=== PATIENT | male | born 1980 | race Caucasian/White ===

== ENCOUNTER 2020-01-24 13:43 | Emergency (ER) | payer BC ==
[2020-01-24] MEDS ORDERED: DIAZEPAM 5 MG TABLET ONE (15:00)
[2020-01-24] MEDS ORDERED: KETOROLAC 30 MG/ML INJ ONE (15:00)
[2020-01-24] MEDS ORDERED: dexAMETHasone 10 MG/ML VIAL ONE (15:00)
[2020-01-24] MEDS ORDERED: NA CHLORIDE 0.9% 1,000 ML ONE (15:00)
[2020-01-24 15:08] LABS: Absolute Lymphocytes (CBC) 2.4 K/uL (0.7-4.9); Basophils % 0.5 % (0-1.3); Hematocrit 48.2 % (39.6-49.0); MPV 8.3 fL (7.6-11.3); RBC Red Blood Cell Count 5.27 M/uL (4.33-5.43)
[2020-01-24 15:19] LABS: Urine Blood NEGATIVE (NEG); Urine Glucose NEGATIVE (NEG); Urine Protein NEGATIVE (NEG); Urine Specific Gravity 1.025 (1.005-1.030); Urine pH 7.5 (5.0-7.0)
[2020-01-24 15:25] LABS: Albumin 4.1 g/dL (3.4-5.0); Bilirubin Total 0.3 mg/dL (0.2-1.0); Potassium 3.9 mmol/L (3.5-5.1); Protein, Total 7.4 g/dL (6.4-8.2)
--- NOTE | 2020-01-24 15:50 | RAD REPORT ---
EXAM DESCRIPTION: CTSpine Lumbar Wo Con01/24/2020 3:31 pm CLINICAL HISTORY: Right leg radiculopathy COMPARISON: None TECHNIQUE: Computed axial tomography lumbar spine was obtained with coronal and sagittal reconstruct ion. All CT scans are performed using dose optimization technique as appropriate and may include automated exposure control or mA/KV adjustment according to patient size. FINDINGS: No fracture is seen. No dislocation is noted. A moderate right posterolateral disc herniation L5-S1 displaces the right S1 nerve root posteriorly IMPRESSION: Negative for a lumbar fracture. Moderate right posterolateral disc herniation L5-S1
--- NOTE | 2020-01-24 15:57 | ER ---
Nurse's Notes [facility] Name: Marycarmen Bob Age: 39 yrs Sex: Male : 1980 Arrival Date: 01/24/2020 Time: 13:48 Bed 15 Private MD: Diagnosis: Sciatica, right side Presentation: 01/23 13:54 Chief complaint: Patient states: Right leg pain for over 1 month. Right foot ss tingling/numb for 4-5 days. History of hernia repair 3 years ago. States they burned off 2 nerves in that area, and he believes the pain is from that. Coronavirus screen: Patient denies fever greater than 100.4F, cough, shortness of breath, or difficulty breathing. Proceed with normal triage process. Ebola Screen: Patient denies travel to an Ebola-affected area in the 21 days before illness onset. Initial Sepsis Screen: Does the patient meet any 2 criteria? No. Patient's initial sepsis screen is negative. Does the patient have a suspected source of infection? No. Patient's initial sepsis screen is negative. Risk Assessment: Do you want to hurt yourself or someone else? Patient reports no desire to harm self or others. 13:54 Method Of Arrival: Ambulatory ss 13:54 Acuity: VINI 4 ss Historical: - Allergies: 13:57 No Known Allergies; ss - PSHx: 13:57 Hernia repair; Vasectomy; ss - Immunization history:: Flu vaccine is not up to date. - Social history:: Smoking status: Patient reports the use of cigarette tobacco products, smokes one-half pack cigarettes per day, Patient/guardian denies using alcohol, street drugs. - Family history:: not pertinent. Screenin:23 Abuse screen: Denies threats or abuse. Denies injuries from another. Nutritional hb screening: No deficits noted. Tuberculosis screening: No symptoms or risk factors identified. Fall Risk None identified. Assessment: 14:23 General: Appears in no apparent distress. Behavior is calm, cooperative. Pain: Denies hb pain. Neuro: Level of Consciousness is awake, alert, obeys commands, Oriented to person, place, time, situation. Cardiovascular: Capillary refill < 3 seconds Patient's skin is warm and dry. Respiratory: Airway is patent Respiratory effort is even, unlabored, Respiratory pattern is regular, symmetrical. GI: No signs and/or symptoms were reported involving the gastrointestinal system. : No signs and/or symptoms were reported regarding the genitourinary system. EENT: No signs and/or symptoms were reported regarding the EENT system. Derm: Skin is pink, warm \T\ dry. Musculoskeletal: Reports right leg pain and numbness. 15:30 Reassessment: Patient appears in no apparent distress at this time. Patient and/or hb family updated on plan of care and expected duration. Pain level reassessed. Patient is alert, oriented x 3, equal unlabored respirations, skin warm/dry/pink. 16:30 Reassessment: Patient appears in no apparent distress at this time. Patient and/or hb family updated on plan of care and expected duration. Pain level reassessed. Patient is alert, oriented x 3, equal unlabored respirations, skin warm/dry/pink. Vital Signs: 13:54 BP 155 / 99; Pulse 98; Resp 18; Temp 98.0; Pulse Ox 97% ; Weight 86.18 kg; Height 5 ft. ss 7 in. (170.18 cm); Pain 8/10; 13:54 Body Mass Index 29.76 (86.18 kg, 170.18 cm) ss ED Course: 13:48 Patient arrived in ED. mr 13:51 Carlos Manuel Tuttle MD is Attending Physician. domenico 13:57 Triage completed. ss 13:58 Arm band placed on. ss 14:22 Amirah Cisneros, RN is Primary Nurse. hb 14:23 Patient has correct armband on for positive identification. Placed in gown. Bed in low hb position. Call light in reach. Side rails up X 1. 15:02 Initial lab(s) drawn, by me, sent to lab. Inserted saline lock: 22 gauge in right jb1 antecubital area, using aseptic technique. Blood collected. 15:32 CT completed. Patient tolerated procedure well. Patient moved back from CT. mw3 15:32 CT Lumbar Spine Wo Con In Process Unspecified. EDMS 15:56 Arik Morales MD is Referral Physician. domenico 16:38 No provider procedures requiring assistance completed. IV discontinued, intact, hb bleeding controlled, No redness/swelling at site. Pressure dressing applied. Administered Medications: 14:59 Drug: NS 0.9% 1000 ml Route: IV; Rate: 1 bolus; Site: right antecubital; hb 14:59 Drug: TORadol 30 mg Route: IVP; Site: right antecubital; hb 14:59 Drug: Decadron - Dexamethasone 10 mg Route: IVP; Site: right antecubital; hb 14:59 Drug: Valium 5 mg Route: PO; hb Outcome: 15:56 Discharge ordered by . domenico 16:38 Discharged to home ambulatory. hb 16:38 Condition: stable 16:38 Discharge instructions given to patient, Instructed on discharge instructions, follow up and referral plans. medication usage, Demonstrated understanding of instructions, follow-up care, medications, Prescriptions given X 4. 16:38 Patient left the ED. hb Signatures: Dispatcher [employer] EDMS Prasanna Bey [email or web address] Carlos Manuel Tuttle MD MD cha Rivera, Mary mr Smirch, Shelby, RN RN Amirah Cisneros RN RN Ara Welsh mw3 Corrections: (The following items were deleted from the chart) 14:25 14:23 Neuro: Level of Consciousness is awake, alert, obeys commands, Oriented to hb Appropriate for age hb 14:25 14:23 Musculoskeletal: No signs and/or symptoms reported regarding the musculoskeletal hb system. hb
--- NOTE | 2020-01-24 15:57 | EDPHYS ---
Physician Documentation [facility] Name: Marycarmen Bbo Age: 39 yrs Sex: Male : 1980 Arrival Date: 01/24/2020 Time: 13:48 Bed 15 Private MD: RAZ Physician Carlos Manuel Tuttle HPI: 01/23 14:51 This 39 yrs old Male presents to ER via Ambulatory with complaints of Leg domenico Pain, Foot numbness. 14:51 The patient presents with decreased range of motion, pain. The complaints affect the domenico lateral aspect of right thigh, lateral aspect of right calf, right hamstring, right calf, medial aspect of right thigh, medial aspect of right calf, right quadriceps and right alexander. Context: The problem was sustained at an unknown site. Modifying factors: The symptoms are alleviated by remaining still, the symptoms are aggravated by movement, weight bearing, bending knee. Associated signs and symptoms: The patient has no apparent associated signs or symptoms. Treatment prior to arrival includes: no previous treatment. Severity of symptoms: At their worst the symptoms were moderate, in the emergency department the symptoms have resolved. The patient has not experienced similar symptoms in the past. Historical: - Allergies: 13:57 No Known Allergies; ss - PSHx: 13:57 Hernia repair; Vasectomy; ss - Immunization history:: Flu vaccine is not up to date. - Social history:: Smoking status: Patient reports the use of cigarette tobacco products, smokes one-half pack cigarettes per day, Patient/guardian denies using alcohol, street drugs. - Family history:: not pertinent. ROS: 14:51 Constitutional: Negative for fever, chills, and weight loss, Eyes: Negative for injury, domenico pain, redness, and discharge, ENT: Negative for injury, pain, and discharge, Neck: Negative for injury, pain, and swelling, Cardiovascular: Negative for chest pain, palpitations, and edema, Respiratory: Negative for shortness of breath, cough, wheezing, and pleuritic chest pain, Abdomen/GI: Negative for abdominal pain, nausea, vomiting, diarrhea, and constipation, Back: Negative for injury and pain, : Negative for injury, bleeding, discharge, and swelling, Skin: Negative for injury, rash, and discoloration, Neuro: Negative for headache, weakness, numbness, tingling, and seizure, Psych: Negative for depression, anxiety, suicide ideation, homicidal ideation, and hallucinations, Allergy/Immunology: Negative for hives, rash, and allergies, Endocrine: Negative for neck swelling, polydipsia, polyuria, polyphagia, and marked weight changes, Hematologic/Lymphatic: Negative for swollen nodes, abnormal bleeding, and unusual bruising. 14:51 MS/extremity: Positive for decreased range of motion, pain, tenderness, of the right leg. Exam: 14:51 Constitutional: This is a well developed, well nourished patient who is awake, alert, domenico and in no acute distress. Head/Face: Normocephalic, atraumatic. Eyes: Pupils equal round and reactive to light, extra-ocular motions intact. Lids and lashes normal. Conjunctiva and sclera are non-icteric and not injected. Cornea within normal limits. Periorbital areas with no swelling, redness, or edema. ENT: Nares patent. No nasal discharge, no septal abnormalities noted. Tympanic membranes are normal and external auditory canals are clear. Oropharynx with no redness, swelling, or masses, exudates, or evidence of obstruction, uvula midline. Mucous membranes moist. Neck: Trachea midline, no thyromegaly or masses palpated, and no cervical lymphadenopathy. Supple, full range of motion without nuchal rigidity, or vertebral point tenderness. No Meningismus. Chest/axilla: Normal chest wall appearance and motion. Nontender with no deformity. No lesions are appreciated. Cardiovascular: Regular rate and rhythm with a normal S1 and S2. No gallops, murmurs, or rubs. Normal PMI, no JVD. No pulse deficits. Respiratory: Lungs have equal breath sounds bilaterally, clear to auscultation and percussion. No rales, rhonchi or wheezes noted. No increased work of breathing, no retractions or nasal flaring. Abdomen/GI: Soft, non-tender, with normal bowel sounds. No distension or tympany. No guarding or rebound. No evidence of tenderness throughout. Back: No spinal tenderness. No costovertebral tenderness. Full range of motion. Male : Normal genitalia with no discharge or lesions. Skin: Warm, dry with normal turgor. Normal color with no rashes, no lesions, and no evidence of cellulitis. Neuro: Awake and alert, GCS 15, oriented to person, place, time, and situation. Cranial nerves II-XII grossly intact. Motor strength 5/5 in all extremities. Sensory grossly intact. Cerebellar exam normal. Normal gait. Psych: Awake, alert, with orientation to person, place and time. Behavior, mood, and affect are within normal limits. 14:51 Musculoskeletal/extremity: ROM: limited active range of motion due to pain, limited passive range of motion due to pain, Circulation is intact in all extremities. Sensation intact. Compartment Syndrome exam of affected extremity: is normal. DVT Exam: no swelling, negative Homans' sign noted on exam, no appreciated bluish discoloration, no erythema, no increased warmth, pain, tenderness. 15:00 : CVA tenderness, is absent, Male external genitalia: normal, Circumcision noted. domenico Patient is not circumisioned. Vital Signs: 13:54 BP 155 / 99; Pulse 98; Resp 18; Temp 98.0; Pulse Ox 97% ; Weight 86.18 kg; Height 5 ft. ss 7 in. (170.18 cm); Pain 8/10; 13:54 Body Mass Index 29.76 (86.18 kg, 170.18 cm) ss MDM: 14:19 Patient medically screened. [facility] 14:55 Data reviewed: vital signs, nurses notes, lab test result(s), radiologic studies, CT domenico scan. 01/23 14:51 Order name: CBC with Diff; Complete Time: 15:37 [facility] 01/23 14:51 Order name: Comprehensive Metabolic Panel; Complete Time: 15:37 [facility] 01/23 14:51 Order name: CT Lumbar Spine Wo Con [facility] 01/23 15:09 Order name: Urine Dipstick--Ancillary (enter results); Complete Time: 15:37 [facility] 01/23 14:51 Order name: Urine Dipstick-Ancillary (obtain specimen); Complete Time: 15:08 [facility] Administered Medications: 14:59 Drug: NS 0.9% 1000 ml Route: IV; Rate: 1 bolus; Site: right antecubital; hb 14:59 Drug: TORadol 30 mg Route: IVP; Site: right antecubital; hb 14:59 Drug: Decadron - Dexamethasone 10 mg Route: IVP; Site: right antecubital; hb 14:59 Drug: Valium 5 mg Route: PO; hb Disposition: 03/29/20 15:56 Discharged to Home. Impression: Sciatica, right side. - Condition is Stable. - Discharge Instructions: Sciatica, Sciatica, [id number], Radicular Pain. - Prescriptions for Ibuprofen 600 mg Oral Tablet - take 1 tablet by ORAL route every 8 hours As needed take with food; 21 tablet. Tylenol- Codeine #3 300-30 mg Oral Tablet - take 2 tablets by ORAL route every 6 hours As needed; 25 tablet. Medrol ([place]) 4 mg Oral Tablets, Dose Pack - take 1 tablet by ORAL route as directed - follow package instructions; 1 packet. Cyclobenzaprine 5 mg Oral Tablet - take 1 tablet by ORAL route 3 times per day As needed; 15 tablet. - Medication Reconciliation Form, Thank You Letter, Antibiotic Education, Prescription Opioid Use, Work release form form. - Follow up: Private Physician; When: 2 - 3 days; Reason: Recheck today's complaints, Continuance of care, Re-evaluation by your physician. Follow up: Arik Morales MD; When: 2 - 3 days; Reason: Recheck today's complaints, Re-evaluation by your physician. - Problem is new. - Symptoms have improved. Signatures: Dispatcher [employer] EDMS Carlos Manuel Tuttle MD MD cha Smirch, Shelby, RN RN Amirah Cisneros RN RN Corrections: (The following items were deleted from the chart) 16:38 15:56 01/24/2020 15:56 Discharged to Home. Impression: Sciatica, right side. Condition hb is Stable. Discharge Instructions: Sciatica, Sciatica, [id number], Radicular Pain. Prescriptions for Ibuprofen 600 mg Oral Tablet - take 1 tablet by ORAL route every 8 hours As needed take with food; 21 tablet, Tylenol-Codeine #3 300-30 mg Oral Tablet - take 2 tablets by ORAL route every 6 hours As needed; 25 tablet, Medrol ([place]) 4 mg Oral Tablets, Dose Pack - take 1 tablet by ORAL route as directed - follow package instructions; 1 packet, Cyclobenzaprine 5 mg Oral Tablet - take 1 tablet by ORAL route 3 times per day As needed; 15 tablet. and Forms are Medication Reconciliation Form, Thank You Letter, Antibiotic Education, Prescription Opioid Use. Follow up: Private Physician; When: 2 - 3 days; Reason: Recheck today's complaints, Continuance of care, Re-evaluation by your physician. Follow up: Arik Morales; When: 2 - 3 days; Reason: Recheck today's complaints, Re-evaluation by your physician. Problem is new. Symptoms have improved. domenico
[2020-01-24 16:53] VITALS: BP 155/99; TEMP 98; O2SAT 97
== END 2020-01-24 16:38 | disposition home or self-care (01) ==
LOC: ER 13:43
DX: M54.31 Sciatica, right side (principal); F17.210 Nicotine dependence, cigarettes, uncomplicated
CPT/HCPCS: 85025; 36415; 81003; 80053; 72131; 96375; 96374; 99284; J1100; J7030